=== PATIENT | male | born 1960 | race Caucasian/White ===

== ENCOUNTER 2021-06-22 21:13 | Emergency (ER) | payer SELFPAY ==
[~2021-06-22] VITALS: Ht 182.9 cm; Wt 71.0 kg
[2021-06-22 21:30] VITALS: BP 121/84
== END 2021-06-22 21:46 | disposition left against medical advice (07) ==
LOC: ER 21:13
DX: R55 Syncope and collapse (principal)
CPT/HCPCS: 99283